=== PATIENT | male | born 1985 | race Caucasian/White ===

== ENCOUNTER 2017-01-03 20:21 | Emergency (ER) | payer OTHER ==
[~2017-01-03] VITALS: Ht 162.6 cm; Wt 59.0 kg
[2017-01-03 20:36] VITALS: Ht 162.6 cm; Wt 59.0 kg
[2017-01-04] MEDS ORDERED: KETOROLAC 15 MG INJ IM STA (00:51)
[2017-01-04] MEDS ORDERED: DIAZEPAM 5 MG TAB PO ONE (01:00)
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
[2017-01-04] MEDS ORDERED: DIAZ-90 PO (01:48)
[2017-01-04] MEDS ORDERED: NAPR-260 PO (01:48)
[2017-01-04 02:18] VITALS: BP 113/73; PULSE 61; RESP 20
== END 2017-01-04 02:21 | disposition home or self-care (01) ==
LOC: FTE 20:21
DX: S16.1XXA Strain of muscle, fascia and tendon at neck level, initial encounter (principal); V49.40XA Driver injured in collision with unspecified motor vehicles in traffic accident, initial encounter
CPT/HCPCS: 96372; J1885; Z7502; Z7610